=== PATIENT | female | born 1945 | race Asian ===

== ENCOUNTER 2016-08-05 12:35 | Outpatient (CLI) | payer OTHER ==
[2016-08-05 13:52] LABS: Hemoglobin A1c 6.8 % (4.0-6.0)
[2016-08-05 13:53] LABS: Anion Gap 18 mmol/L (10-20); BUN (Urea Nitrogen) 20 mg/dL (9.8-20.1); Calc. Creatinine Clearance 0 mL/min (70-130); Carbon Dioxide 24 mmol/L (23-31); Chloride 104 mmol/L (98-107); Estimated GFR-MDRD 54; Potassium 3.9 mmol/L (3.5-5.1); Sodium 142 mmol/L (136-145)
[2016-08-05 13:54] LABS: Albumin 4.5 g/dL (3.4-4.8); Bilirubin, Total 0.6 mg/dL (0.2-1.2); Calcium 9.7 mg/dL (7.8-10.44); Globulin 2.6 g/dL (2.4-3.5); Glucose 140 mg/dL (80-115); Protein, Total 7.1 g/dL (5.8-8.1)
[2016-08-05 13:55] LABS: ALT (SGPT) 19 U/L (0-55); AST (SGOT) 21 U/L (5-34); Alkaline Phosphatase 42 U/L (40-150); CK (CPK) 100 U/L (29-168); Triglycerides 89 mg/dL (Less than 150)
[2016-08-05 13:58] LABS: Cholesterol 239 mg/dL (< 200 Desired); HDL Cholesterol 74 mg/dL (>60 Neg Risk); LDL Cholesterol, Calculated 147 mg/dL
[2016-08-05 13:59] LABS: Cardiac Risk 3.2 (Less than 4.5)
== END 2016-08-05 12:36 | disposition home or self-care (01) ==
LOC: MADLAB 12:35
PROVIDERS: ATTEND Internal Medicine
DX: E78.5 Hyperlipidemia, unspecified (principal); E03.9 Hypothyroidism, unspecified; E11.9 Type 2 diabetes mellitus without complications; I10 Essential (primary) hypertension
CPT/HCPCS: 80053; 80061; 82550; 83036; 84439; 84443

== ENCOUNTER 2016-12-14 21:12 | Outpatient (CLI) | payer OTHER ==
[2016-12-14 23:36] LABS: Free T4 (Free Thyroxine) 1.08 ng/dL (0.70-1.48); Hemoglobin A1c 6.4 % (4.0-6.0); Thyroid Stimulating Hormone 3.2 uIU/mL (0.35-4.94)
[2016-12-14 23:37] LABS: Carbon Dioxide 27 mmol/L (23-31); Chloride 107 mmol/L (98-107); Potassium 3.9 mmol/L (3.5-5.1); Sodium 142 mmol/L (136-145); Vitamin D, 25 Hydroxy 19.5 ng/mL (> 30.0)
[2016-12-14 23:38] LABS: Albumin 4.1 g/dL (3.4-4.8); BUN (Urea Nitrogen) 25 mg/dL (9.8-20.1); Bilirubin, Total 0.5 mg/dL (0.2-1.2); Calc. Creatinine Clearance 0 mL/min (70-130); Calcium 9.5 mg/dL (7.8-10.44); Estimated GFR-MDRD 59; Glucose 122 mg/dL (80-115); Protein, Total 7.1 g/dL (5.8-8.1)
[2016-12-14 23:39] LABS: ALT (SGPT) 15 U/L (8-55); AST (SGOT) 10 U/L (5-34); Alkaline Phosphatase 42 U/L (40-150); Cholesterol 188 mg/dL (< 200 Desired); HDL Cholesterol 60 mg/dL (>60 Neg Risk); LDL Cholesterol, Calculated 129 mg/dL; Triglycerides 83 mg/dL (Less than 150)
[2016-12-14 23:40] LABS: Anion Gap 12 mmol/L (10-20); Cardiac Risk 3.4 (Less than 4.5)
[2016-12-15 16:33] LABS: Hep C IgG Ab Non-Reactive (NonReactive); Hep C Index 0.19 S/CO (0-0.79)
== END 2016-12-14 21:13 | disposition home or self-care (01) ==
LOC: MADLAB 21:12
PROVIDERS: ATTEND Internal Medicine
DX: Z13.818 Encounter for screening for other digestive system disorders (principal); E11.9 Type 2 diabetes mellitus without complications; E78.5 Hyperlipidemia, unspecified; E03.9 Hypothyroidism, unspecified; E55.9 Vitamin D deficiency, unspecified; I10 Essential (primary) hypertension
CPT/HCPCS: 80053; 80061; 82306; 83036; 84439; 84443; 86803

== ENCOUNTER 2017-06-03 05:58 | Outpatient (CLI) | payer OTHER ==
[2017-06-03 06:13] LABS: BUN (Urea Nitrogen) 16 mg/dL (9.8-20.1); Carbon Dioxide 23 mmol/L (23-31); Chloride 104 mmol/L (98-107); Potassium 3.7 mmol/L (3.5-5.1); Sodium 141 mmol/L (136-145)
[2017-06-03 06:14] LABS: Albumin 4.2 g/dL (3.4-4.8); Bilirubin, Total 0.9 mg/dL (0.2-1.2); Calc. Creatinine Clearance 0 mL/min (70-130); Calcium 9.6 mg/dL (7.8-10.44); Estimated GFR-MDRD 69; Globulin 3.2 g/dL (2.4-3.5); Glucose 113 mg/dL (80-115); Protein, Total 7.4 g/dL (5.8-8.1)
[2017-06-03 06:15] LABS: ALT (SGPT) 14 U/L (8-55); AST (SGOT) 15 U/L (5-34); Alkaline Phosphatase 51 U/L (40-150); Cardiac Risk 3.5 (Less than 4.5); Cholesterol 201 mg/dL (< 200 Desired); HDL Cholesterol 57 mg/dL (>60 Neg Risk); LDL Cholesterol, Calculated 111 mg/dL; Triglycerides 163 mg/dL (Less than 150)
[2017-06-03 06:16] LABS: Anion Gap 18 mmol/L (10-20)
[2017-06-03 10:37] LABS: Hemoglobin A1c 6.3 % (4.0-6.0)
== END 2017-06-03 05:59 | disposition home or self-care (01) ==
LOC: MADLAB 05:58
PROVIDERS: ATTEND Internal Medicine
DX: Z13.818 Encounter for screening for other digestive system disorders (principal); E03.9 Hypothyroidism, unspecified; E78.5 Hyperlipidemia, unspecified; E55.9 Vitamin D deficiency, unspecified; I10 Essential (primary) hypertension
CPT/HCPCS: 80053; 80061; 83036; 84443

== ENCOUNTER 2017-11-04 06:04 | Outpatient (CLI) | payer OTHER ==
[2017-11-04 08:03] LABS: #Basophils 0.1 thou/uL (0.0-0.2); #Eosinphils 0.1 thou/uL (0.0-0.7); #Monocytes 0.3 thou/uL (0.11-0.59); #Neutrophils 3.6 thou/uL (1.40-6.50); %Basophils 0.9 % (0.0-1.0); %Eosinophils 1.4 % (0.0-10.0); %Lymphocytes 32.5 % (21.0-51.0); %Neutrophils 60.2 % (42.0-75.0); Hemoglobin 14.2 g/dL (12.0-16.0); Mean Corpuscular Hemoglobin 31.3 pg (27.0-31.0); Mean Corpuscular Volume 97.9 fl (81.0-99.0); Mean Platelet Volume 7.9 fL (7.4-10.4); Platelet Count 215 thou/uL (130-400); RBC Distribution Width 11.8 % (11.5-14.5); Red Blood Cell (RBC) Count 4.51 mill/uL (4.20-5.40)
[2017-11-04 08:20] LABS: Bilirubin Negative (Negative); Blood, Urine Trace (Negative); Clarity Clear (Clear); Glucose, Urine (Dipstick) Negative (Negative); Nitrite Negative (Negative); Protein, Urine (Dipstick) Negative (Neg-Trace); Urobilinogen 0.2 mg/dL (0.2-1.0); pH, Urine 5.5 (5.0-9.0)
[2017-11-04 08:21] LABS: Bacteria/HPF Rare-Few HPF (None Seen); Leukocyte Trace (Negative); RBC/HPF 0-3 HPF (0-3); WBC/HPF 0-3 HPF (0-3)
[2017-11-04 08:30] LABS: Sodium 143 mmol/L (136-145)
[2017-11-04 08:31] LABS: Albumin 4.5 g/dL (3.4-4.8); Anion Gap 14 mmol/L (10-20); BUN (Urea Nitrogen) 18 mg/dL (9.8-20.1); Bilirubin, Total 1.1 mg/dL (0.2-1.2); Calc. Creatinine Clearance 0 mL/min (70-130); Calcium 9.9 mg/dL (7.8-10.44); Carbon Dioxide 27 mmol/L (23-31); Chloride 106 mmol/L (98-107); Estimated GFR-MDRD 71; Globulin 3.2 g/dL (2.4-3.5); Glucose 123 mg/dL (83-110); Potassium 3.9 mmol/L (3.5-5.1); Protein, Total 7.7 g/dL (5.8-8.1)
[2017-11-04 08:32] LABS: ALT (SGPT) 12 U/L (8-55); AST (SGOT) 11 U/L (5-34); Alkaline Phosphatase 60 U/L (40-150)
[2017-11-04 08:48] LABS: Thyroid Stimulating Hormone 0.56 uIU/mL (0.35-4.94)
[2017-11-04 08:51] LABS: Cholesterol 174 mg/dL (< 200 Desired)
[2017-11-04 08:52] LABS: Cardiac Risk 3.2 (Less than 4.5); HDL Cholesterol 55 mg/dL (>60 Neg Risk); LDL Cholesterol, Calculated 97 mg/dL; Triglycerides 112 mg/dL (Less than 150)
[2017-11-04 17:06] LABS: Hemoglobin A1c 7.1 % (4.0-6.0)
[2017-11-04 17:19] LABS: Creatinine, Urine 109.51 mg/dL (47-110); Microalbumin Urine 2.2 mg/dL (0.5-50.0); Microalbumin/Creat Ratio 20.1 mg/g (Less than 30)
[2017-11-04 17:34] LABS: Free T4 (Free Thyroxine) 1.48 ng/dL (0.70-1.48); Vitamin D, 25 Hydroxy 17.3 ng/ml (> 30.0)
== END 2017-11-04 06:05 | disposition home or self-care (01) ==
LOC: MADLAB 06:04
PROVIDERS: ATTEND Internal Medicine
DX: Z00.00 Encounter for general adult medical examination without abnormal findings (principal); E11.9 Type 2 diabetes mellitus without complications; E78.5 Hyperlipidemia, unspecified; E03.9 Hypothyroidism, unspecified; E55.9 Vitamin D deficiency, unspecified
CPT/HCPCS: 80053; 80061; 81001; 82043; 82306; 83036; 84439; 84443; 85025

== ENCOUNTER 2018-05-11 08:32 | Emergency (ER) | payer OTHER ==
[2018-05-11 19:52] LABS: HBSAB Concentration 0.43 mIU/mL; HIV (1/2) Antibody/Antigen Non-Reactive (NonReactive); HIV 1/2 INDEX 0.17 S/CO (<1.00); Hep B Surf AB Non-Reactive (NonReactive); Hep C IgG Ab Non-Reactive (NonReactive); Hep C Index 0.16 S/CO (0-0.79)
== END 2018-05-11 09:15 | disposition home or self-care (01) ==
LOC: MADERS 08:32
DX: Z20.2 Contact with and (suspected) exposure to infections with a predominantly sexual mode of transmission (principal); E11.9 Type 2 diabetes mellitus without complications; E03.9 Hypothyroidism, unspecified; I10 Essential (primary) hypertension
CPT/HCPCS: 36415; 86706; 86803; 87389; 99283

== ENCOUNTER 2019-03-10 10:10 | Outpatient (CLI) | payer OTHER ==
[2019-03-10 11:08] LABS: ALT (SGPT) 15 U/L (8-55); AST (SGOT) 15 U/L (5-34); Albumin 4.2 g/dL (3.4-4.8); Alkaline Phosphatase 49 U/L (40-110); Anion Gap 15 mmol/L (10-20); BUN (Urea Nitrogen) 17 mg/dL (9.8-20.1); Bilirubin, Total 0.5 mg/dL (0.2-1.2); Calc. Creatinine Clearance 0 mL/min (70-130); Calcium 9.9 mg/dL (7.8-10.44); Carbon Dioxide 25 mmol/L (23-31); Cardiac Risk 3.6 (Less than 4.5); Chloride 107 mmol/L (98-107); Cholesterol 196 mg/dl (< 200 Desired); Estimated GFR-MDRD 61; Globulin 3.1 g/dL (2.4-3.5); Glucose 126 mg/dL (83-110); HDL Cholesterol 55 mg/dL (>60 Neg Risk); LDL Cholesterol, Calculated 119 mg/dL; Potassium 3.8 mmol/L (3.5-5.1); Protein, Total 7.3 g/dL (6.0-8.3); Sodium 143 mmol/L (136-145); Triglycerides 109 mg/dL (Less than 150)
[2019-03-10 16:59] LABS: Hemoglobin A1c 6.3 % (4.0-6.0)
== END 2019-03-10 10:11 | disposition home or self-care (01) ==
LOC: MADLAB 10:10
PROVIDERS: ATTEND Internal Medicine
DX: E11.9 Type 2 diabetes mellitus without complications (principal); E03.9 Hypothyroidism, unspecified; E78.5 Hyperlipidemia, unspecified
CPT/HCPCS: 80053; 80061; 83036; 84443

== ENCOUNTER 2020-11-08 12:21 | Outpatient (CLI) | payer OTHER | END 2020-11-08 12:22 | disposition home or self-care (01) | LOC: MADRAD 12:21 | PROVIDERS: ATTEND Emergency Medicine | DX: R76.12 Nonspecific reaction to cell mediated immunity measurement of gamma interferon antigen response without active tuberculosis (principal) | CPT/HCPCS: 71046 ==

== ENCOUNTER 2021-08-09 10:10 | Outpatient (CLI) | payer SELFPAY ==
[2021-08-09 10:23] LABS: #Eosinphils 0.1 thou/uL (0.0-0.7); #Lymphocytes 1.8 thou/uL (1.20-3.40); #Monocytes 0.4 thou/uL (0.11-0.59); #Neutrophils 4.2 thou/uL (1.40-6.50); %Basophils 0.7 % (0.0-1.0); %Eosinophils 1.5 % (0.0-10.0); %Lymphocytes 27.6 % (21.0-51.0); %Monocytes 5.4 % (0.0-10.0); %Neutrophils 64.8 % (42.0-75.0); Hemoglobin 13.1 g/dL (12.0-16.0); Mean Corpuscular HGB CONC 32.1 g/dL (32.0-36.0); Mean Corpuscular Hemoglobin 31.5 pg (27.0-31.0); Mean Corpuscular Volume 98.3 fL (78.0-98.0); Mean Platelet Volume 6.8 fL (7.4-10.4); Platelet Count 238 thou/uL (130-400); RBC Distribution Width 11.6 % (11.5-14.5); Red Blood Cell (RBC) Count 4.16 mill/uL (4.20-5.40); White Blood Cell (WBC) Count 6.5 thou/uL (4.8-10.8)
[2021-08-09 10:42] LABS: Anion Gap 13 mmol/L (10-20); BUN (Urea Nitrogen) 14 mg/dL (9.8-20.1); Calc. Creatinine Clearance 0 mL/min (70-130); Carbon Dioxide 27 mmol/L (23-31); Chloride 105 mmol/L (98-107); Potassium 3.5 mmol/L (3.5-5.1); Sodium 141 mmol/L (136-145)
[2021-08-09 10:43] LABS: Albumin 4.3 g/dL (3.4-4.8); Bilirubin, Total 1.1 mg/dL (0.2-1.2); Calcium 9.8 mg/dL (7.8-10.44); Globulin 3.2 g/dL (2.4-3.5); Protein, Total 7.5 g/dL (5.8-8.1)
[2021-08-09 10:44] LABS: ALT (SGPT) 20 U/L (8-55); AST (SGOT) 17 U/L (5-34); Alkaline Phosphatase 64 U/L (40-110); Cardiac Risk 2.4 (Less than 4.5); Cholesterol 140 mg/dL (< 200 Desired); HDL Cholesterol 59 mg/dL (>60 Neg Risk); LDL Cholesterol, Calculated 65 mg/dL; Triglycerides 80 mg/dL (Less than 150)
[2021-08-09 10:45] LABS: Glucose 122 mg/dL (83-110)
[2021-08-09 11:19] LABS: Thyroid Stimulating Hormone 0.302 uIU/mL (0.35-4.94)
[2021-08-09 16:56] LABS: Vitamin D, 25 Hydroxy 34.7 ng/ml (> 30.0)
== END 2021-08-09 10:11 | disposition home or self-care (01) ==
LOC: MADLAB 10:10
DX: Z00.00 Encounter for general adult medical examination without abnormal findings (principal)
CPT/HCPCS: 80050; 80061; 82306; 83036

== ENCOUNTER 2022-01-14 09:52 | Outpatient (CLI) | payer OTHER ==
[2022-01-14 10:15] LABS: #Basophils 0.1 thou/uL (0.0-0.2); #Eosinphils 0.1 thou/uL (0.0-0.7); #Lymphocytes 1.9 thou/uL (1.20-3.40); #Monocytes 0.4 thou/uL (0.11-0.59); #Neutrophils 4.9 thou/uL (1.40-6.50); %Basophils 0.9 % (0.0-1.0); %Eosinophils 1.9 % (0.0-10.0); %Monocytes 5.1 % (0.0-10.0); %Neutrophils 66.1 % (42.0-75.0); Hemoglobin 12.6 g/dL (12.0-16.0); Mean Corpuscular HGB CONC 31.5 g/dL (32.0-36.0); Mean Corpuscular Hemoglobin 32.5 pg (27.0-31.0); Mean Platelet Volume 10.2 fL (7.4-10.4); Platelet Count 175 thou/uL (130-400); RBC Distribution Width 11.9 % (11.5-14.5); Red Blood Cell (RBC) Count 3.89 mill/uL (4.20-5.40); White Blood Cell (WBC) Count 7.4 thou/uL (4.8-10.8)
[2022-01-14 10:39] LABS: ALT (SGPT) 16 U/L (8-55); AST (SGOT) 14 U/L (5-34); Albumin 4.2 g/dL (3.4-4.8); Alkaline Phosphatase 57 U/L (40-110); Anion Gap 12 mmol/L (10-20); BUN (Urea Nitrogen) 12 mg/dL (9.8-20.1); Calc. Creatinine Clearance 0 mL/min (70-130); Calcium 9.4 mg/dL (7.8-10.44); Carbon Dioxide 27 mmol/L (23-31); Chloride 106 mmol/L (98-107); Estimated GFR 80; Globulin 2.5 g/dL (2.4-3.5); Glucose 118 mg/dL (83-110); Potassium 3.6 mmol/L (3.5-5.1); Protein, Total 6.7 g/dL (5.8-8.1); Sodium 141 mmol/L (136-145)
[2022-01-14 16:24] LABS: Hemoglobin A1c 6.4 % (4.0-6.0)
== END 2022-01-14 09:53 | disposition home or self-care (01) ==
LOC: MADLAB 09:52
DX: Z00.00 Encounter for general adult medical examination without abnormal findings (principal)
CPT/HCPCS: 36415; 80050; 83036

== ENCOUNTER 2022-08-22 08:54 | Outpatient (CLI) | payer SELFPAY ==
[2022-08-22 10:12] LABS: #Eosinphils 0.1 thou/uL (0.0-0.7); #Lymphocytes 2.2 thou/uL (1.20-3.40); #Monocytes 0.3 thou/uL (0.11-0.59); #Neutrophils 3.7 thou/uL (1.40-6.50); %Basophils 1.2 % (0.0-1.0); %Eosinophils 2.4 % (0.0-10.0); %Lymphocytes 32.8 % (21.0-51.0); %Monocytes 5.7 % (0.0-10.0); %Neutrophils 57.9 % (42.0-75.0); Hemoglobin 13.8 g/dL (12.0-16.0); Mean Corpuscular HGB CONC 31.8 g/dL (32.0-36.0); Mean Corpuscular Hemoglobin 33.7 pg (27.0-31.0); Mean Platelet Volume 8.7 fL (7.4-10.4); Platelet Count 201 10x3/uL (130-400); RBC Distribution Width 12.4 % (11.5-14.5); Red Blood Cell (RBC) Count 4.11 mill/uL (4.20-5.40); White Blood Cell (WBC) Count 6.6 10x3/uL (4.8-10.8)
[2022-08-22 10:13] LABS: ALT (SGPT) 22 U/L (8-55); AST (SGOT) 18 U/L (5-34); Albumin 4.5 g/dL (3.4-4.8); Alkaline Phosphatase 58 U/L (40-110); Anion Gap 13 mmol/L (10-20); BUN (Urea Nitrogen) 16 mg/dL (9.8-20.1); Bilirubin, Total 0.9 mg/dL (0.2-1.2); Calc. Creatinine Clearance 0 mL/min (70-130); Calcium 9.9 mg/dL (7.8-10.44); Carbon Dioxide 27 mmol/L (23-31); Chloride 104 mmol/L (98-107); Estimated GFR 71; Globulin 3.3 g/dL (2.4-3.5); Glucose 134 mg/dL (83-110); Potassium 3.7 mmol/L (3.5-5.1); Protein, Total 7.8 g/dL (5.8-8.1); Sodium 140 mmol/L (136-145)
[2022-08-22 10:20] LABS: Anisocytosis SLIGHT = 6-15 cells (100X) (0-5/hpf); Macrocytosis SLIGHT = 6-15 cells (100X) (0-5/hpf); Platelet Morphology Comment Appears Adequate
[2022-08-22 18:38] LABS: Hemoglobin A1c 6.8 % (4.0-6.0)
== END 2022-08-22 08:55 | disposition home or self-care (01) ==
LOC: MADLAB 08:54
DX: Z00.00 Encounter for general adult medical examination without abnormal findings (principal)
CPT/HCPCS: 36415; 80050; 82306; 83036